=== PATIENT | male | born 1970 | race Two or more races ===

== ENCOUNTER 2017-09-08 06:50 | Inpatient (IN) | payer OTHER ==
[~2017-09-08] VITALS: Ht 167.6 cm; Wt 90.7 kg
[~2017-09-08 06:50] MED LIST: AMOX1TAB12 PO; CEFUROXIME500 MG PO; CORTISPORIN EAR10 M1 OT; COZAAR50 MG; COZAAR50 MG PO; DOLOGESIC CAPLE1 TAB PO; FLONASE16 GM NS; MUCINEX600 MG PO; OMEPRAZOLE 20 MG; PROTONIX20 MG; PROTONIX20 MG PO; TESSALON PERLE100 MG PO; ZANTAC150 M3
[2017-09-09] MEDS ORDERED: ACETAMINOPHEN12.5 ML PO (08:12)
[2017-09-09] MEDS ORDERED: AMOXICILLI400 MG/5 M PO (08:12)
== END 2017-09-09 09:58 | disposition home or self-care (01) | DRG 134 ==
LOC: CIR.AMB 06:50 → SURG 19:22 → SURH 20:25
PROVIDERS: Otolaryngology
PROC: 0CTP0ZZ Resection of Tonsils, Open Approach (ICD-10-PCS; 2017-09-08)
PROC: 0CTQ0ZZ Resection of Adenoids, Open Approach (ICD-10-PCS; principal; 2017-09-08 07:00)
PROC: 0CTN0ZZ Resection of Uvula, Open Approach (ICD-10-PCS; 2017-09-08 07:00)
DX: J35.3 Hypertrophy of tonsils with hypertrophy of adenoids (principal); G47.33 Obstructive sleep apnea (adult) (pediatric); E66.8 Other obesity; Z68.34 Body mass index [BMI] 34.0-34.9, adult

== ENCOUNTER 2017-09-12 01:12 | Inpatient (IN) | payer OTHER ==
[~2017-09-12] VITALS: Ht 170.2 cm; Wt 90.7 kg
[~2017-09-12 01:12] MED LIST changes: +ACETAMINOPHEN12.5 ML PO; +AMOXICILLI400 MG/5 M PO
== END 2017-09-13 10:25 | disposition home or self-care (01) | DRG 921 ==
LOC: ER 01:12 → SURH 13:16
DX: L76.22 Postprocedural hemorrhage of skin and subcutaneous tissue following other procedure (principal); Y83.8 Other surgical procedures as the cause of abnormal reaction of the patient, or of later complication, without mention of misadventure at the time of the procedure; Y92.098 Other place in other non-institutional residence as the place of occurrence of the external cause; G47.33 Obstructive sleep apnea (adult) (pediatric)

== ENCOUNTER 2017-09-23 08:28 | Outpatient (CLI) | payer OTHER ==
[~2017-09-23] VITALS: Ht 152.4 cm; Wt 88.5 kg
== END 2017-09-23 08:40 | disposition home or self-care (01) ==
LOC: OFIC 805 08:28
DX: G47.33 Obstructive sleep apnea (adult) (pediatric) (principal); E66.01 Morbid (severe) obesity due to excess calories; Z68.34 Body mass index [BMI] 34.0-34.9, adult

== ENCOUNTER 2017-12-01 06:51 | Outpatient (CLI) | payer OTHER | END 2017-12-01 07:01 | disposition home or self-care (01) | LOC: LAB 06:51 | DX: I10 Essential (primary) hypertension (principal); E78.4 Other hyperlipidemia ==

== ENCOUNTER 2017-12-16 07:55 | Outpatient (CLI) | payer OTHER ==
[~2017-12-16] VITALS: Ht 152.4 cm; Wt 88.5 kg
== END 2017-12-16 08:10 | disposition home or self-care (01) ==
LOC: OFIC 805 07:55
DX: G47.33 Obstructive sleep apnea (adult) (pediatric) (principal); J31.0 Chronic rhinitis; J34.2 Deviated nasal septum

== ENCOUNTER → 2018-04-07 07:32 | Outpatient (CLI) | payer OTHER | END | disposition home or self-care (01) | LOC: LAB 07:32 | DX: I10 Essential (primary) hypertension (principal); E78.2 Mixed hyperlipidemia ==

== ENCOUNTER 2018-05-20 10:02 | Outpatient (CLI) | payer OTHER | END 2018-05-20 10:04 | disposition home or self-care (01) | LOC: RAD 10:02 | DX: M54.2 Cervicalgia (principal) ==

== ENCOUNTER 2018-08-06 11:49 | Outpatient (CLI) | payer OTHER | END 2018-08-06 11:54 | disposition home or self-care (01) | LOC: LAB 11:49 | DX: J11.1 Influenza due to unidentified influenza virus with other respiratory manifestations (principal); J06.9 Acute upper respiratory infection, unspecified ==

== ENCOUNTER 2018-08-16 11:37 | Outpatient (CLI) | payer OTHER | END 2018-08-16 11:46 | disposition home or self-care (01) | LOC: LAB 11:37 | DX: Z11.3 Encounter for screening for infections with a predominantly sexual mode of transmission (principal) ==

== ENCOUNTER → 2018-09-30 | Outpatient (CLI) | payer OTHER | END | disposition home or self-care (01) | LOC: NUCLEAR 09:45 | DX: I10 Essential (primary) hypertension (principal) ==

== ENCOUNTER 2018-10-01 07:07 | Outpatient (CLI) | payer OTHER | END 2018-10-01 07:16 | disposition home or self-care (01) | LOC: LAB 07:07 | DX: E03.8 Other specified hypothyroidism (principal); R10.84 Generalized abdominal pain; E78.49 Other hyperlipidemia; E11.9 Type 2 diabetes mellitus without complications; E73.8 Other lactose intolerance; N40.0 Benign prostatic hyperplasia without lower urinary tract symptoms; Z12.5 Encounter for screening for malignant neoplasm of prostate ==

== ENCOUNTER → 2019-03-30 06:33 | Outpatient (CLI) | payer OTHER | END | disposition home or self-care (01) | LOC: LAB 06:33 | DX: D64.89 Other specified anemias (principal); R10.84 Generalized abdominal pain; E78.49 Other hyperlipidemia ==

== ENCOUNTER → 2019-10-29 07:24 | Outpatient (CLI) | payer OTHER | END | disposition home or self-care (01) | LOC: LAB 07:24 | PROVIDERS: ATTEND Internal Medicine | DX: E78.49 Other hyperlipidemia (principal); D64.89 Other specified anemias; R10.84 Generalized abdominal pain; R80.8 Other proteinuria; E11.9 Type 2 diabetes mellitus without complications ==

== ENCOUNTER 2019-11-09 07:46 | Outpatient (CLI) | payer OTHER | END 2019-11-09 07:51 | disposition home or self-care (01) | LOC: LAB 07:46 | PROVIDERS: ATTEND Internal Medicine | DX: M06.9 Rheumatoid arthritis, unspecified (principal) ==

== ENCOUNTER 2020-02-03 10:00 | Outpatient (CLI) | payer OTHER | END 2020-02-03 15:00 | disposition home or self-care (01) | LOC: PPH VACUNA 10:00 | DX: Z23 Encounter for immunization (principal) ==

== ENCOUNTER 2020-04-16 07:19 | Outpatient (CLI) | payer OTHER | END 2020-04-16 07:25 | disposition home or self-care (01) | LOC: LAB 07:19 | DX: D64.89 Other specified anemias (principal); I10 Essential (primary) hypertension; E78.1 Pure hyperglyceridemia; E78.49 Other hyperlipidemia; R10.84 Generalized abdominal pain; R80.8 Other proteinuria; E11.9 Type 2 diabetes mellitus without complications ==

== ENCOUNTER 2020-05-01 06:00 | Outpatient (CLI) | payer OTHER | END 2020-05-01 06:02 | disposition home or self-care (01) | LOC: PPH VACUNA 06:00 | DX: Z23 Encounter for immunization (principal) ==

== ENCOUNTER → 2020-10-19 07:30 | Outpatient (CLI) | payer OTHER | END | disposition home or self-care (01) | LOC: LAB 07:30 | PROVIDERS: ATTEND Internal Medicine | DX: R10.9 Unspecified abdominal pain (principal); E78.5 Hyperlipidemia, unspecified ==

== ENCOUNTER 2021-02-11 08:00 | Outpatient (CLI) | payer OTHER | END 2021-02-11 08:30 | disposition home or self-care (01) | LOC: PPH VACUNA 08:00 | PROVIDERS: ATTEND Emergency Medicine Pediatric Emergency Medicine | DX: Z23 Encounter for immunization (principal) ==

== ENCOUNTER 2021-02-21 11:00 | Outpatient (CLI) | payer OTHER | END 2021-02-21 14:48 | disposition home or self-care (01) | LOC: PPH VACUNA 11:00 | PROVIDERS: ATTEND Emergency Medicine Pediatric Emergency Medicine | DX: Z23 Encounter for immunization (principal) ==

== ENCOUNTER → 2021-04-26 06:29 | Outpatient (CLI) | payer OTHER | END | disposition home or self-care (01) | LOC: LAB 06:29 | PROVIDERS: ATTEND Internal Medicine Cardiovascular Disease | DX: N39.0 Urinary tract infection, site not specified (principal); D64.89 Other specified anemias; R10.84 Generalized abdominal pain; E03.8 Other specified hypothyroidism; E78.5 Hyperlipidemia, unspecified; R80.9 Proteinuria, unspecified; R73.09 Other abnormal glucose ==

== ENCOUNTER 2021-05-30 13:29 | Outpatient (CLI) | payer OTHER | END 2021-05-30 13:30 | disposition home or self-care (01) | LOC: LAB 13:29 | PROVIDERS: ATTEND Specialist | DX: Z11.3 Encounter for screening for infections with a predominantly sexual mode of transmission (principal) ==

== ENCOUNTER → 2021-12-24 06:51 | Outpatient (CLI) | payer OTHER | END | disposition home or self-care (01) | LOC: LAB 06:51 | PROVIDERS: ATTEND Internal Medicine | DX: D64.9 Anemia, unspecified (principal); R10.9 Unspecified abdominal pain; E03.9 Hypothyroidism, unspecified; E78.5 Hyperlipidemia, unspecified; R80.9 Proteinuria, unspecified; E11.9 Type 2 diabetes mellitus without complications ==

== ENCOUNTER → 2021-12-26 10:12 | Outpatient (CLI) | payer OTHER | END | disposition home or self-care (01) | LOC: LAB 10:12 | PROVIDERS: ATTEND General Practice | DX: M79.671 Pain in right foot (principal); M25.50 Pain in unspecified joint ==

== ENCOUNTER 2021-12-26 10:40 | Outpatient (CLI) | payer OTHER | END 2021-12-26 10:48 | disposition home or self-care (01) | LOC: RAD 10:40 | PROVIDERS: ATTEND General Practice | DX: M79.671 Pain in right foot (principal); M25.571 Pain in right ankle and joints of right foot ==

== ENCOUNTER 2022-01-15 08:28 | Outpatient (CLI) | payer OTHER | END 2022-01-15 08:33 | disposition home or self-care (01) | LOC: PPH VACUNA 08:28 | PROVIDERS: ATTEND Emergency Medicine Pediatric Emergency Medicine | DX: Z23 Encounter for immunization (principal) ==

== ENCOUNTER 2022-03-04 10:44 | Outpatient (CLI) | payer OTHER | END 2022-03-04 10:54 | disposition home or self-care (01) | LOC: PPH VACUNA 10:44 | PROVIDERS: ATTEND Emergency Medicine Pediatric Emergency Medicine | DX: Z23 Encounter for immunization (principal) ==

== ENCOUNTER 2022-08-12 07:12 | Outpatient (CLI) | payer OTHER | END 2022-08-12 07:18 | disposition home or self-care (01) | LOC: LAB 07:12 | PROVIDERS: ATTEND Internal Medicine | DX: D64.9 Anemia, unspecified (principal); R10.9 Unspecified abdominal pain; E78.5 Hyperlipidemia, unspecified ==

== ENCOUNTER → 2023-01-15 | Outpatient (CLI) | payer OTHER | END | disposition home or self-care (01) | LOC: PPH VACUNA | PROVIDERS: ATTEND Emergency Medicine Pediatric Emergency Medicine | DX: Z23 Encounter for immunization (principal) | CPT/HCPCS: 90686; G0008 ==

== ENCOUNTER 2023-01-23 06:42 | Outpatient (CLI) | payer OTHER | END 2023-01-23 06:43 | disposition home or self-care (01) | LOC: LAB 06:42 | DX: Z01.812 Encounter for preprocedural laboratory examination (principal) ==

== ENCOUNTER 2023-03-26 07:49 | Outpatient (CLI) | payer OTHER ==
[2023-03-26 08:44] LABS: HEMATOCRIT 40.7 % (39.0-48.0); HEMOGLOBIN 13.4 g/dL (13-16.00); MEAN CELL VOLUME 85.8 fL (80.0-100.00); MEAN CORPUSCULAR HEMOGLOBIN 28.1 pg (27.00-32.0); MEAN CORPUSCULAR HGB CONC 32.8 g/dl (32.0-36.0); PLATELET COUNT 283 K/uL (150-450); RED BLOOD COUNT 4.75 M/uL (4.00-6.00)
[2023-03-26 09:39] LABS: ALBUMIN 3.9 gm/dL (3.4-5.0); BILIRUBIN TOTAL 0.69 mg/dL (0.3-1.2); CALCIUM 9.6 mg/dL (8.5-10.1); CHOL HDL RATIO 4.5 (0-5.0); CREATININE SERUM 1.18 mg/dL (0.70-1.30); GFR 64.57; GLOBULINA 3.6 G/DL (2.4-3.5); POTASSIUM 4.18 mEq/L (3.5-5.1); PROSTATIC SPECIFIC ANTIGEN 1.64 NG/ML (0.010-4.00); TOTAL PROTEIN 7.5 gm/dL (6.4-8.2)
== END 2023-03-26 07:53 | disposition home or self-care (01) ==
LOC: LAB 07:49
PROVIDERS: ATTEND Internal Medicine
DX: D64.9 Anemia, unspecified (principal); R10.9 Unspecified abdominal pain; E78.5 Hyperlipidemia, unspecified; R80.9 Proteinuria, unspecified; R73.09 Other abnormal glucose; N40.0 Benign prostatic hyperplasia without lower urinary tract symptoms; Z12.5 Encounter for screening for malignant neoplasm of prostate

== ENCOUNTER 2024-01-13 08:17 | Emergency (ER) | payer OTHER ==
[~2024-01-13] VITALS: Ht 170.2 cm; Wt 87.5 kg
[~2024-01-13 08:17] MED LIST changes: +ATACAND4 MG; +CYCLOBENZAPRINE10 MG PO; +NABUMETONE750 MG PO
[2024-01-13] MEDS ORDERED: KETOROLAC TROMETHAMINE 60 MG VIAL IM STA (08:49)
[2024-01-13] MEDS ORDERED: KETOROLAC TROMETHAMINE 60 MG VIAL IM ONE (08:59)
== END 2024-01-13 10:18 | disposition home or self-care (01) ==
LOC: ER 08:17
DX: M06.9 Rheumatoid arthritis, unspecified (principal)

== ENCOUNTER 2024-02-18 09:20 | Outpatient (CLI) | payer OTHER | END 2024-02-18 10:00 | disposition home or self-care (01) | LOC: PPH VACUNA 09:20 | PROVIDERS: ATTEND Emergency Medicine Pediatric Emergency Medicine | DX: Z23 Encounter for immunization (principal) ==

== ENCOUNTER → 2024-04-01 | Outpatient (CLI) | payer OTHER ==
[2024-04-01 08:26] LABS: CHOL HDL RATIO 4.5 (0-5.0)
== END | disposition home or self-care (01) ==
LOC: LAB 07:14
PROVIDERS: ATTEND Internal Medicine
DX: E78.5 Hyperlipidemia, unspecified (principal)

== ENCOUNTER 2024-09-23 06:57 | Outpatient (CLI) | payer OTHER ==
[2024-09-23 08:01] LABS: HEMATOCRIT 38.3 % (39.0-48.0); HEMOGLOBIN 12.8 g/dL (13-16.00); MEAN CELL VOLUME 85.2 fL (80.0-100.00); MEAN CORPUSCULAR HEMOGLOBIN 28.4 pg (27.00-32.0); MEAN CORPUSCULAR HGB CONC 33.3 g/dl (32.0-36.0); PLATELET COUNT 285 K/uL (150-450); RED BLOOD COUNT 4.49 M/uL (4.00-6.00); RED CELL DISTRIBUTION WIDTH 15.3 % (11.5-14.5)
[2024-09-23 08:07] LABS: ERYTHROCYTE SEDIMENTATION RATE 6 mm/hr
[2024-09-23 09:31] LABS: ALBUMIN 4.1 gm/dL (3.4-5.0); ALKALINE PHOSPHATASE 73 U/L (50-136); ALT/SGPT 18 U/L (12-78); ANION GAP 8 (10.0-20.0); AST/SGOT 12 U/L (15-37); BILIRUBIN TOTAL 0.57 mg/dL (0.3-1.2); BLOOD UREA NITROGEN 13 mg/dL (7-18); BUN CREA RATIO 13 (7.0-25.0); CALCIUM 9.5 mg/dL (8.5-10.1); CARBON DIOXIDE 29 mEq/L (21-32); CHLORIDE 109 mmol/L (98-107); CHOL HDL RATIO 3.2 (0-5.0); CHOLESTEROL 205 mg/dL (0-200); CREATININE SERUM 0.97 mg/dL (0.70-1.30); GFR 80.65; GLUCOSE FASTING 89 mg/dL (65-100); HDL 65 mg/dl (40-60); LDL 122 mg/dl (0-130); OSMOLALITY SERUM 283 MOSM/KG (275-295); PHOSPHOROUS 2.6 mg/dL (2.5-4.9); POTASSIUM 4.08 mEq/L (3.5-5.1); SODIUM 142 mmol/L (136-145); TOTAL PROTEIN 7.1 gm/dL (6.4-8.2); TRIGLYCERIDES 88 mg/dL (0-150); VLDL 17 (0-39)
[2024-09-23 09:37] LABS: C-REACTIVE PROTEIN < 0.29 MG/DL (0.00-0.29)
[2024-09-26 09:08] LABS: CALCIUM IONIZED 5.2 mg/dL (4.5-5.6)
== END 2024-09-23 07:13 | disposition home or self-care (01) ==
LOC: LAB 06:57
PROVIDERS: ATTEND Internal Medicine
DX: D64.9 Anemia, unspecified (principal); R10.9 Unspecified abdominal pain; E78.5 Hyperlipidemia, unspecified; R80.9 Proteinuria, unspecified; E11.9 Type 2 diabetes mellitus without complications; R73.09 Other abnormal glucose; M06.4 Inflammatory polyarthropathy; M10.079 Idiopathic gout, unspecified ankle and foot

== ENCOUNTER 2025-03-28 14:30 | Outpatient (CLI) | payer OTHER | END 2025-03-28 14:40 | disposition home or self-care (01) | LOC: PPH VACUNA 14:30 | PROVIDERS: ATTEND Emergency Medicine Pediatric Emergency Medicine | DX: Z23 Encounter for immunization (principal) ==